=== PATIENT | male | born 2000 | race African-American/Black ===

== ENCOUNTER 2023-08-17 04:01 | Emergency (ER) | payer OTHER, SELFPAY ==
[2023-08-17 04:05] VITALS: BP 141/97; PULSE 121; RESP 16; TEMP 36.3; O2SAT 98
--- NOTE | 2023-08-17 04:31 | ECG_ITS ---
Measurements Intervals [place] Rate: 116 P: 87 IN: 132 QRS: 22 QRSD: 93 T: 51 QT: 316 QTc: 440 Interpretive Statements SINUS TACHYCARDIA INCOMPLETE RIGHT BUNDLE BRANCH BLOCK MINIMAL Q WAVES- HIGH LATERAL LEADS ABNORMAL ECG NO PREVIOUS ECG AVAILABLE FOR COMPARISON Electronically Signed On 08-17-2023 6:20:46 DOCUMENTATION IMPROVEMENT SPECIALIST by Albert Oliva D.O.
--- NOTE | 2023-08-17 04:51 | PC.NURSE ---
THIS RN ALONG WITH TIRE RECAPPER AND X2 TECHS GOT VERBAL CONFIRMATION FROM PT TO DRAW BLOOD AND PERFORM A DUI KIT.
[2023-08-17 04:53] LABS: Basophils Percent Auto 0.3 % (0.2-1.2); Hematocrit 49.1 % (42.0-52.0); Hemoglobin 15.8 g/dL (14.0-18.0); Immature Granulocyte Absolute 0.02 K/mm3 (0.00-0.031); Immature Granulocyte Percent A 0.3 % (0-0.5); Lymphocytes Absolute Auto 1.54 K/mm3 (0.9-3.2); Lymphocytes Percent Auto 21.4 % (18.3-44.2); Mean Corpuscular HGB Conc 32.2 g/dl (32-36); Mean Corpuscular Volume 93.2 fl (80-100); Mean Platelet Volume 9.5 fl (7.4-10.4); Monocytes Absolute Auto 0.4 K/mm3 (0.1-0.6); Monocytes Percent Auto 5.5 % (2.6-8.5); Neutrophils Absolute Auto 5.2 K/mm3 (1.3-6.7); Neutrophils Percent Auto 72.5 % (45.5-73.1); Platelet Count Result 307 k/mm3 (150-375); Red Blood Count 5.27 M/mm3 (4.6-6.20); Red Cell Distribution Width 12.6 % (11.5-14.5); White Blood Count 7.2 K/mm3 (4.5-10.0)
--- NOTE | 2023-08-17 04:53 | PC.NURSE ---
THIS RN ATTTEMPTED X3 FOR IV ACCESS. PT BEGAN THRASHING AND PULLING AT IV SITE. THIS RN WAS UNSUCCESSFUL X3. ANOTHER RN ATTEMPTED TO ESTABLISH IV ACCESS. PT BEGAN THRASHING AND YELLING TAKE THIS OUT . PT REMOVED IV ACCESS. EDP MADE AWARE THERE WAS NO ESTABLISHED IV. EDP CONFIRMED THAT FLUIDS DID NOT HAVE TO ADMINISTERED DUE TO PT REFUSAL.
[2023-08-17 05:06] LABS: Acetaminophen < 10 ug/mL (10-30); Alanine Aminotransferase 27 U/L (6-50); Albumin Level 5.3 g/dL (3.5-5.1); Alkaline Phosphatase 81 U/L (38-126); Anion Gap 16 mmol/L (8-16); Aspartate Amino Transferase 52 U/L (17-59); Bilirubin,Total 0.7 mg/dL (0.2-1.3); Blood Urea Nitrogen 13 mg/dL (9-20); Calcium 9.1 mg/dL (8.4-10.2); Carbon Dioxide 23 mmol/L (22-30); Chloride 108 mmol/L (98-107); Estimated CRCL calculation 85 ml/min; Estimated Glomerular Filt Rate > 60; Glucose 124 mg/dL (65-110); Potassium 4.6 mmol/L (3.4-5.0); Salicylate < 1.0 mg/dL (2-20); Sodium 147 mmol/L (137-145)
--- NOTE | 2023-08-17 05:07 | PC.NURSE ---
Patient A&oX4 and refused straight catheterization for urine.
--- NOTE | 2023-08-17 05:08 | PC.NURSE ---
Patient states to nursing staff that his school work is getting stressful. 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 Patient also states that he took six Tylenol the other day because life was stressful.
[2023-08-17 05:22] LABS: Prothrombin Time 13.5 Seconds (11.1-14.7)
[2023-08-17 05:23] LABS: Partial Thromboplastin Time 25.2 SECONDS (22.3-36.8)
[2023-08-17 05:28] LABS: Ethanol 291 mg/dL (<10)
[2023-08-17 05:30] LABS: Influenza A QL RT-PCR Negative (Negative); Influenza B QL RT-PCR Negative (Negative); SARS-CoV-2 RNA PCR Negative (Negative)
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
[2023-08-17 05:37] LABS: Troponin I 0.026 ng/mL (0.000-0.034)
--- NOTE | 2023-08-17 07:10 | PC.NURSE ---
Safety tray ordered for patient
[2023-08-17 07:23] VITALS: BP 136/84; PULSE 71; RESP 16; O2SAT 99
--- NOTE | 2023-08-17 07:40 | ECG_ITS ---
Measurements Intervals [place] Rate: 67 P: 152 WA: 139 QRS: -5 QRSD: 88 T: 152 QT: 387 QTc: 411 Interpretive Statements SINUS RHYTHM LIMB LEAD REVERSAL POSSIBLE LEFT ATRIAL ENLARGEMENT INCOMPLETE RIGHT BUNDLE BRANCH BLOCK BORDERLINE T WAVE ABNORMALITY- INFERIOR LEADS BORDERLINE ECG COMPARED TO ECG 08/17/2023 04:21:01 SINUS RHYTHM NOW PRESENT Electronically Signed On 08-17-2023 15:29:57 DISCOUNT CLERK by Albert Oliva D.O.
[2023-08-17 07:46] LABS: Appearance Urine Clear (Clear); Bilirubin Urine Negative (Negative); Blood Urine Negative (Negative); Color Urine Yellow (Yellow); Glucose Urine UA Negative (Negative); Ketones Urine Negative (Negative); Leukocyte Esterase Ur Negative LEU/UL (Negative); Nitrate Urine Negative (Negative); Protein Urine Negative (Negative); Specific Grav Ur 1.003 (1.001-1.035); Urobilinogen Urine 0.2 mg/dL (<2.0); pH Urine 6.5 (5.0-9.0)
--- NOTE | 2023-08-17 07:52 | PC.NURSE ---
Pt refusing 3hr troponin bloodwork. Pt educated on importance of blood test. Pt continues to refuse, EDP notified and given VORB to redraw troponin and do repeat EKG when ETOH redraw is due
[2023-08-17 08:01] LABS: Amphetamine Screen Urine Negative (Negative); Barbiturate Screen Urine Negative (Negative); Benzodiazepines Screen Urine Negative (Negative); Cannabinoid Screen Urine Negative (Negative); Cocaine Screen Urine Negative (Negative); Methadone Screen Urine Negative (Negative); Opiate Screen Urine Negative (Negative); Phencyclidine Screen Urine Negative (Negative)
[2023-08-17 08:12] LABS: Add Urine Microscopic? NO
[2023-08-17 15:09] LABS: Ethanol 108 mg/dL (<10)
[2023-08-17 15:23] LABS: Troponin I < 0.012 ng/mL (0.000-0.034)
[2023-08-17 15:36] VITALS: BP 150/84; PULSE 85; RESP 16; O2SAT 100
[2023-08-17 17:09] LABS: Ethanol 72 mg/dL (<10)
--- NOTE | 2023-08-17 17:45 | PC.NURSE ---
1737: This RN called [facility] and was informed that they could not accept pt 1742: This RN called [facility] and spoke with Meagan who stated that they would send somebody out to evaluate the pt.
[2023-08-17 18:25] VITALS: BP 138/57; PULSE 76; RESP 16; O2SAT 98
--- NOTE | 2023-08-17 19:21 | PC.NURSE ---
Crisis decided to safety plan pt
== END 2023-08-17 19:21 | disposition home or self-care (01) ==
PROVIDERS: Emergency Medicine; Emergency Provider Emergency Medicine
DX: Z04.1 Encounter for examination and observation following transport accident (principal); F10.129 Alcohol abuse with intoxication, unspecified; Y90.5 Blood alcohol level of 100-119 mg/100 ml; R45.851 Suicidal ideations; R07.9 Chest pain, unspecified; Z20.822 Contact with and (suspected) exposure to COVID-19; V49.9XXA Car occupant (driver) (passenger) injured in unspecified traffic accident, initial encounter; I45.10 Unspecified right bundle-branch block; R00.0 Tachycardia, unspecified; R94.31 Abnormal electrocardiogram [ECG] [EKG]
CPT/HCPCS: 36415; 80053; 80307; 81003; 84443; 84484; 85025; 85610; 85730; 87636; 93005; 99284